=== PATIENT | female | born 1990 | race Caucasian/White ===

== ENCOUNTER 2023-06-01 11:48 | Day surgery (SDC) | payer OTHER | END 2023-06-02 07:50 | disposition home or self-care (01) | LOC: CIR.AMB 11:48 | PROVIDERS: ATTEND Obstetrics & Gynecology | DX: N93.8 Other specified abnormal uterine and vaginal bleeding (principal); N84.0 Polyp of corpus uteri; Z20.822 Contact with and (suspected) exposure to COVID-19 ==